=== PATIENT | female | born 2000 | race Two or more races ===

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

== ENCOUNTER 2020-12-05 19:06 | Emergency (ER) | payer MEDICAID ==
[~2020-12-05] VITALS: Ht 160 cm; Wt 63.5 kg
--- NOTE | 2020-12-05 19:49 | NUR ---
at bedside for assessment.
[2020-12-05] MEDS ORDERED: SODIUM BICARBONATE 4.2 % (NEUT) 5 ML VIAL TP ONE (20:00)
[2020-12-05] MEDS ORDERED: SULFAMETH/TRIMETH 800/160 MG TABLET PO ONE (20:00)
[2020-12-05] MEDS ORDERED: LIDOCAINE 1%-EPI 1:100,000 20 ML VIAL IJ ONE (20:00)
[2020-12-05] MEDS ORDERED: SULFAMETH/TRIMETH 800/160 MG TABLET ONE (20:10)
[2020-12-05] MEDS ORDERED: CEPH500T PO (20:29)
[2020-12-05] MEDS ORDERED: SULF1TAB48 PO (20:29)
[2020-12-05] MEDS ORDERED: CEFTRIAXONE 1 G VIAL ONE (20:30)
[2020-12-05] MEDS ORDERED: CEFTRIAXONE 1 G VIAL IM ONE (20:30)
[2020-12-05 21:05] VITALS: BP 132/64
--- NOTE | 2020-12-05 21:06 | NUR ---
Patient discharged to home in stable condition. A&Ox4. Written and verbal after care instructions given. Patient verbalizes understanding of instructions. Stressed follow up or return to ER for worsening s/s. Belongings with patient. Rx given and explained.
== END 2020-12-05 20:43 | disposition home or self-care (01) ==
LOC: ER 19:06
DX: L02.414 Cutaneous abscess of left upper limb (principal); L03.114 Cellulitis of left upper limb; Z59.0 Homelessness; F17.210 Nicotine dependence, cigarettes, uncomplicated; F11.20 Opioid dependence, uncomplicated; R03.0 Elevated blood-pressure reading, without diagnosis of hypertension
CPT/HCPCS: 10060; 96372; 99283; 99406; J0696; J3490 ×3; A4663

== ENCOUNTER 2020-12-09 00:40 | Emergency (ER) | payer MEDICAID ==
[~2020-12-09] VITALS: Ht 160 cm; Wt 61.2 kg
[~2020-12-09 00:40] MED LIST: CEPH500T PO; SULF1TAB48 PO
--- NOTE | 2020-12-09 00:54 | NUR ---
MD BAEZ in room to do MSE.
[2020-12-09 01:00] VITALS: BP 111/70
--- NOTE | 2020-12-09 01:00 | NUR ---
Patient discharged to home in stable condition. Written and verbal after care instructions given. Patient verbalizes understanding of instructions. Stressed follow up or return to ER for worsening s/s. Ambulated from ER with stable gait. All belongings with patient.
== END 2020-12-09 01:01 | disposition home or self-care (01) ==
LOC: ER 00:44
DX: Z48.817 Encounter for surgical aftercare following surgery on the skin and subcutaneous tissue (principal); L02.414 Cutaneous abscess of left upper limb; Z59.0 Homelessness
CPT/HCPCS: A4217; A4663

== ENCOUNTER 2021-01-07 15:17 | Emergency (ER) | payer MEDICAID ==
[~2021-01-07] VITALS: Ht 160 cm; Wt 61.2 kg
--- NOTE | 2021-01-07 15:36 | NUR ---
at bedside for assessment
[2021-01-07] MEDS ORDERED: LIDOCAINE 1%-EPI 1:100,000 20 ML VIAL IJ ONE (16:15)
[2021-01-07] MEDS ORDERED: LIDOCAINE 1%-EPI 1:100,000 20 ML VIAL ONE (16:21)
--- NOTE | 2021-01-07 18:00 | NUR ---
Right ankle abscess noted, patient states it was a "spider bite", MD Landrum did incision and drainage, abscess packed with plain packing and dressed with bordered gauze
--- NOTE | 2021-01-07 18:37 | NUR ---
Patient discharged to home in stable condition. Able to ambulate with steady gait, all needs met. Written and verbal after care instructions given. Patient verbalizes understanding of instructions. Stressed follow up or return to ER for worsening s/s.
[2021-01-07 18:39] VITALS: BP 117/68
== END 2021-01-07 18:35 | disposition home or self-care (01) ==
LOC: ER 15:17
DX: L02.415 Cutaneous abscess of right lower limb (principal); F17.210 Nicotine dependence, cigarettes, uncomplicated
CPT/HCPCS: 10060; 99282; J3490; A4217; A4663